=== PATIENT | female | born 1975 | race Caucasian/White ===

== ENCOUNTER 2023-02-20 08:49 | Emergency (ER) | payer BC, SELFPAY ==
[2023-02-20 08:56] VITALS: BP 140/76; PULSE 100; RESP 20; TEMP 37; O2SAT 100
--- NOTE | 2023-02-20 09:02 | ED.GENADULT ---
HPI - General Adult General Chief complaint: Chest Pain Stated complaint: chest pain Time Seen by Provider: 02/20/23 09:06 Source: patient, RN notes reviewed and old records reviewed Mode of arrival: ambulatory Limitations: no limitations History of Present Illness HPI narrative: 47 year old female who presents to [facility] care with complaints of sternal chest intermittently for one week duration. Patient reports that she had COVID 02/05/2023 and prior to that she had a sinus infection. After having COVID she received treatment for sinus infection with antibiotic and steroids. Patient reports that she has not had an acute cough. Patient reports that she has no radiation of pain, stays in sternal area,denies any shortness of breath. MD complaint: chest pain sternal Onset (ago): week(s) (1) Location: chest (sternal) Treatments prior to arrival: other (Tylenol and Ibuprofen and TUMs) Related Data Home Medications Medication Instructions Recorded Confirmed alprazolam 0.5 mg tablet 0.5 mg PO TID PRN Anxiety 02/20/23 02/20/23 ergocalciferol (vitamin D2) 1,250 1,250 mcg PO WEEKLY 02/20/23 02/20/23 mcg (50,000 unit) capsule escitalopram oxalate 20 mg tablet 20 mg PO DAILY 02/20/23 02/20/23 lisinopril 10 mg tablet 10 mg PO DAILY 02/20/23 02/20/23 montelukast 10 mg tablet 10 mg PO DAILY 02/20/23 02/20/23 Allergies Allergy/AdvReac Type Severity Reaction Status Date / Time No Known Allergies Allergy Verified 12/24/16 10:49 Review of Systems Review of Systems: CONSTITUTIONAL: Denies fever, chills, or sweats. EYES: Denies visual changes, redness, or discharge. ENT: Denies rhinorrhea, congestion, sore throat, or otalgia. CARDIOVASCULAR: reports intermittent sternal chest pain one week duration,no palpitations, or edema. RESPIRATORY: Denies cough or dyspnea. GASTROINTESTINAL: Denies abdominal pain, nausea, vomiting, or diarrhea. GENITOURINARY: Denies dysuria or hematuria. SKIN: Denies rash or itching. MUSCULOSKELETAL: Denies back pain, joint pain, or myalgia. NEUROLOGIC: Denies headache, numbness, or weakness. PSYCHIATRIC: Reports history of anxiety or depression. All systems reviewed & are unremarkable except as noted in HPI and below PMFSH Past Medical History Medical History (Updated 02/21/23 @ 09:15 by Jackeline Shah NP) Anxiety Hypertension Surgical History Surgical History (Updated 02/20/23 @ 09:52 by Jackeline Shah NP) H/O: hysterectomy Hx of cholecystectomy Social History Social History (Updated 02/20/23 @ 09:52 by Jackeline Shah NP) Smoking status: Never smoker Alcohol intake: current Alcohol use details: social Substance use type: does not use Gender identity (if verbalized by the patient): Female Comments At time of signature, agree with nursing past medical, surgical, social and family history. There is no relevant family history pertinent to the presenting complaint Exam Narrative: GENERAL: Well-appearing, well-nourished, and in no acute distress. HEAD: Normocephalic, atraumatic. EYES: PERRLA and EOMI. ENT: Nares clear, no rhinorrhea or epistaxis. Mucous membranes moist.TM's normal throat pink NECK: Supple. no lymphadenopathy CHEST: Clear to auscultation. No respiratory distress.SAO2 100% on room air HEART: Regular rate and rhythm. No murmur heard. Normal peripheral pulses. ABDOMEN: Soft, nontender, nondistended, normal active bowel sounds. EXTREMITIES: Normal range of motion. No edema. SKIN: Warm, dry, no rash. NEURO: No focal deficits. Alert and oriented x3. Course Course Emergency Course: Patient is aware of diagnosis, understands and agrees to treatment plan.? Anticipatory guidance given.? Patient agrees to follow-up as directed and is aware of reasons to seek care at the emergency department. Portions of this record may have been created with voice recognition software Level of Care: Express Care Visit Vital Signs Vital signs: Vital Signs Temperature
--- NOTE | 2023-02-20 09:23 | ECG_ITS ---
Measurements Intervals [place] Rate: 88 P: 33 ID: [id number] QRS: -23 QRSD: 98 T: 7 QT: 366 QTc: 444 Interpretive Statements SINUS RHYTHM VENTRICULAR PREMATURE COMPLEXES ANTERIOR INFARCT, AGE INDETERMINATE INFERIOR INFARCT, AGE INDETERMINATE VOLTAGE CRITERIA FOR LVH BASELINE ARTIFACT- II, III, AVR, AVF, V1-V6 ABNORMAL ECG NO PREVIOUS ECG AVAILABLE FOR COMPARISON Electronically Signed On 02-20-2023 12:53:37 [employer] by Jose Carlos Mckay D.O.
== END 2023-02-20 09:45 | disposition short-term general hospital (02) ==
PROVIDERS: Emergency Provider Registered Nurse; PCP Family Medicine
DX: R07.9 Chest pain, unspecified (principal); I10 Essential (primary) hypertension; Z79.899 Other long term (current) drug therapy
CPT/HCPCS: 93005; 99213; G0463

== ENCOUNTER 2024-08-06 12:49 | Emergency (ER) | payer BC, SELFPAY ==
--- NOTE | ~2024-08-06 | XR_ITS ---
EXAM/ PROCEDURE: XR elbow RT min 3V - 08/06/2024 13:12 CDT HISTORY: 48 years old Female with POSTERIOR PAIN X 1 MONTH COMPARISON: None available TECHNIQUE: Four view(s) FINDINGS/ IMPRESSION: There are no fractures or dislocations.Joint spaces are within normal limits Reviewed, dictated and finalized at location A.
[2024-08-06 12:55] VITALS: BP 140/78; PULSE 108; RESP 18; TEMP 36.3; O2SAT 98
--- NOTE | 2024-08-06 13:10 | ED.UPPEXIN ---
HPI - Extremity Injury (Upper) General Chief Complaint: Extremity Injury, Upper Stated Complaint: Right elbow injury Time Seen by Provider: 08/06/24 13:10 Source: patient Mode of arrival: ambulatory Limitations: no limitations History of Present Illness HPI narrative: 48 year female presents with complaint of pain to right elbow for approximately 1 month. First started after she changed a part of the equipment in her pool motor. Has been taking ibuprofen Tylenol, pain has gone away or decreased but starts again after aggravating it. Today was pulling weeds and now has throbbing to right elbow. 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 Full range of motion, distal neurovascularly intact. All systems reviewed and negative except as noted above. Related Data Home Medications ?Medication ?Instructions ?Recorded ?Confirmed ?Last Taken ?Type alprazolam 0.5 mg tablet 0.5 mg PO TID PRN Anxiety 02/20/23 02/20/23 Unknown History ergocalciferol (vitamin D2) 1,250 1,250 mcg PO WEEKLY 02/20/23 02/20/23 Unknown History mcg (50,000 unit) capsule escitalopram oxalate 20 mg tablet 20 mg PO DAILY 02/20/23 02/20/23 Unknown History lisinopril 10 mg tablet 10 mg PO DAILY 02/20/23 02/20/23 Unknown History montelukast 10 mg tablet 10 mg PO DAILY 02/20/23 02/20/23 Unknown History albuterol sulfate 90 mcg/actuation inhalation 08/06/24 Unknown History aerosol inhaler omeprazole 20 mg capsule,delayed mg 08/06/24 Unknown History release Allergies Allergy/AdvReac Type Severity Reaction Status Date / Time amoxicillin (From Augmentin) Allergy Intermediate Palpitation Verified 08/06/24 13:01 s clavulanic acid (From Allergy Intermediate Palpitation Verified 08/06/24 13:01 Augmentin) s morphine Allergy Intermediate Palpitation Verified 08/06/24 13:01 s Review of Systems Review of Systems: CONSTITUTIONAL: Denies fever, chills, or sweats. EYES: Denies visual changes, redness, or discharge. ENT: Denies rhinorrhea, congestion, sore throat, or otalgia. CARDIOVASCULAR: Denies chest pain, palpitations, or edema. RESPIRATORY: Denies cough or dyspnea. GASTROINTESTINAL: Denies abdominal pain, nausea, vomiting, or diarrhea. GENITOURINARY: Denies dysuria or hematuria. SKIN: Denies rash or itching. MUSCULOSKELETAL: Denies back pain or myalgia. Reports pain to right NEUROLOGIC: Denies headache, numbness, or weakness. PSYCHIATRIC: Denies anxiety or depression. All other systems reviewed are negative, except as documented in HPI. [facility] Past Medical History Medical History (Updated 08/06/24 @ 13:43 by Fani Xavier NP) Anxiety Hypertension Surgical History Surgical History (Updated 02/20/23 @ 09:52 by Jackeline Shah NP) H/O: hysterectomy Hx of cholecystectomy Social History Social History (Updated 02/20/23 @ 09:52 by Jackeline Shah NP) Smoking status: Never smoker Alcohol intake: current Alcohol use details: social Substance use type: does not use Gender identity (if verbalized by the patient): Female Comments At time of signature, agree with nursing past medical, surgical, social and family history. There is no relevant family history pertinent to the presenting complaint. Exam Narrative: GENERAL: This is a well-nourished, well-developed patient, in no apparent distress. HEAD: normocephalic, atraumatic. EYES: PERRL. Sclera clear/white. Vision is grossly intact. EARS: External ears normal NOSE: External nose normal NECK: Neck supple, non-tender without lymphadenopathy, masses or thyromegaly. CARDIOVASCULAR: Regular rate and rhythm without murmurs, gallops, or rubs. RESPIRATORY: Clear to auscultation. Breath sounds equal bilaterally. No wheezes, rales, or rhonchi. SKIN: warm, Dry, intact with no suspicious lesions or rash, good texture and turgor. NEURO: awake, alert, and oriented to person, place and time. There were no obvious focal neurologic abnormalities. EXTREMITIES: tenderness to extensor tendon R elbow with mild swelling. no erythema or warmth. 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 Course Course Level of Care: Express Care Visit Vital Signs Vital signs: Vital Signs Temperature 36.3 C L 08/06/24 12:55 Pulse Rate 108 H 08/06/24 12:55 Respiratory Rate 18 08/06/24 12:55 Blood Pressure 140/78 08/06/24 12:55 Pulse Oximetry 98 08/06/24 12:55 Oxygen Delivery Room Air 08/06/24 12:55 Temperature 36.3 C L 08/06/24 12:55 Pulse Rate 108 H 08/06/24 12:55 Respiratory Rate 18 08/06/24 12:55 Blood Pressure 140/78 08/06/24 12:55 Pulse Oximetry 98 08/06/24 12:55 Oxygen Delivery Room Air 08/06/24 12:55 reviewed MDM - Extremity Injury (Upper) MDM Narrative Medical decision making narrative: x-ray of right elbow normal. patient given Toradol IM at [facility]. States that pain is worse when leaning right arm had a down. Will place In sling for comfort. referred to Orthopedics. Discharge Plan Discharge Clinical Impression: Right elbow tendinitis Patient Disposition: Home Condition: Stable Instructions: Tennis Elbow (ED) Additional Instructions: the x-ray of your right elbow was negative for fracture. Take ibuprofen or Tylenol every 6-8 hours as needed for pain. Wear sling for comfort. May remove at When at rest, bedtime and when showering. follow-up with orthopedics if pain is not improving. Patient Language: Honduran Prescriptions: New prednisone 20 mg tablet See Rx Instructions .ROUTE .COMPLEX Qty: 12 0RF Rx Instructions: Take 3 tablets today, then 2 tablets daily for 3 days then 1 tablet daily for 3 days. 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
[2024-08-06] MEDS: KETOROLAC (*BKC) 60 MG/2 ML VIAL IM (13:45)
== END 2024-08-06 14:10 | disposition home or self-care (01) ==
PROVIDERS: Emergency Provider Nurse Practitioner Family; PCP Family Medicine
DX: M77.8 Other enthesopathies, not elsewhere classified (principal); I10 Essential (primary) hypertension
CPT/HCPCS: 73080; 96372; 99213; A4565; G0463; J1885